=== PATIENT | male | born 2000 | race African-American/Black ===

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

== ENCOUNTER 2019-01-29 16:59 | Emergency (ER) | payer BC, MEDICAID ==
[~2019-01-29] VITALS: Ht 188 cm; Wt 81.6 kg
[2019-01-29 17:00] VITALS: BP_SYST 117
--- NOTE | 2019-01-29 17:00 | NUR ---
BROUGHT BACK TO BED #6 AND TRIAGED. REPORT GIVEN TO LEO
--- NOTE | 2019-01-29 17:05 | NUR ---
Pt brought by family member, A&Ox4, pt presents to ER with LAC on L eyelid , pt was playing basketball and pt had head to head contact with another player, bleeding controlled, pt is afebrile.
[2019-01-29] MEDS ORDERED: IBUPROFEN 600 MG TABLET PO ONE (17:15)
[2019-01-29] MEDS ORDERED: LIDOCAINE 2%, 20 ML MDV INJ ONE (17:15)
[2019-01-29] MEDS ORDERED: AMOXICILLIN/CLAVULANATE POTASSIUM 875 MG TABLET PO ONE (17:15)
[2019-01-29] MEDS ORDERED: DIPH-TET-PERTUS Vaccine 0.5 ML VIAL (ADACEL) I.M. ONE ×2 (17:15→18:01)
--- NOTE | 2019-01-29 17:20 | NUR ---
Ariana Banks COURIER at bedside examining patient
[2019-01-29] MEDS ORDERED: BACITRACIN 1 GM OINT TP ONE (17:30)
--- NOTE | 2019-01-29 18:00 | NUR ---
Patient given written and verbal discharge instructions and verbalizes understanding. ER MD discussed with patient the results and treatment provided. Patient in stable condition. ID arm band removed. Rx of MOTRIN, AUGMENTIN, BACITRACIN given. Patient educated on pain management and to follow up with PMD. Pain Scale 0/10. Opportunity for questions provided and answered. Medication side effect fact sheet provided.
[2019-01-29 18:02] VITALS: BP_SYST 117
[2019-02-04] MEDS ORDERED: KETOROLAC TROMETHAMINE 60 MG/2 ML VIAL IM ONE (18:30)
== END 2019-01-29 18:02 | disposition home or self-care (01) ==
LOC: SED 16:59
DX: S01.112A Laceration without foreign body of left eyelid and periocular area, initial encounter (principal); J45.909 Unspecified asthma, uncomplicated; R03.0 Elevated blood-pressure reading, without diagnosis of hypertension; W50.0XXA Accidental hit or strike by another person, initial encounter; Y93.67 Activity, basketball; Y92.89 Other specified places as the place of occurrence of the external cause; Y99.8 Other external cause status
CPT/HCPCS: 12011; 90471; 90715; 99283; J2001

== ENCOUNTER 2019-02-05 09:19 | Emergency (ER) | payer BC ==
[~2019-02-05] VITALS: Ht 188 cm; Wt 81.6 kg
[2019-02-05 09:30] VITALS: BP_SYST 115
--- NOTE | 2019-02-05 09:34 | NUR ---
Patient to ER bed 8 to gown for evaluation. Side rails up. Report given to Gerardo MONTEMAYOR.
--- NOTE | 2019-02-05 09:35 | NUR ---
Pt is here for suture removal to left 1cm supraorbit sutured wound without periwound erythema or discharge. Denies pain.
--- NOTE | 2019-02-05 09:36 | NUR ---
GIO Banks at bedside examining patient.
[2019-02-05 09:40] VITALS: BP_SYST 115
--- NOTE | 2019-02-05 09:40 | NUR ---
3 SUTURES REMOVAL SKIN INTACT WELL APPROXIMATELY,NO S/S INFECTION
--- NOTE | 2019-02-05 09:42 | NUR ---
Patient given written and verbal discharge instructions and verbalizes understanding. ER MD discussed with patient the results and treatment provided. Patient in stable condition. ID arm band removed. Rx of given. Patient educated on pain management and to follow up with PMD. Pain Scale 0. Opportunity for questions provided and answered. Medication side effect fact sheet provided.
== END 2019-02-05 09:42 | disposition home or self-care (01) ==
LOC: SED 09:19
DX: S01.112D Laceration without foreign body of left eyelid and periocular area, subsequent encounter (principal); J45.909 Unspecified asthma, uncomplicated; W50.0XXD Accidental hit or strike by another person, subsequent encounter
CPT/HCPCS: 99281

== ENCOUNTER 2020-10-18 20:03 | Emergency (ER) | payer BC ==
[~2020-10-18] VITALS: Ht 188 cm; Wt 79.4 kg
[2020-10-18 20:08] VITALS: BP_SYST 122
[2020-10-18 21:09] VITALS: BP_SYST 122
== END 2020-10-18 21:09 | disposition home or self-care (01) ==
LOC: SED 20:03
DX: S63.276A Dislocation of unspecified interphalangeal joint of right little finger, initial encounter (principal); W21.05XA Struck by basketball, initial encounter; Y93.67 Activity, basketball; Y92.89 Other specified places as the place of occurrence of the external cause; Y99.8 Other external cause status
CPT/HCPCS: 73140-TC; 99284

== ENCOUNTER 2024-02-06 19:17 | Emergency (ER) | payer BC ==
[~2024-02-06] VITALS: Ht 182.9 cm; Wt 81.6 kg
[2024-02-06 19:21] VITALS: BP_SYST 143; PULSE 83; RESP 20; TEMP 97.8; O2SAT 99
[2024-02-06] MEDS: HYDROcodone/ACETAMIN 10-325 MG TAB PO ONE (19:58)
[2024-02-06] MEDS: IBUPROFEN 800 MG TABLET PO ONE (19:58)
[2024-02-06] MEDS ORDERED: TRAM50TA2 PO (21:36)
[2024-02-06] MEDS ORDERED: IBUP-1971 PO (21:36)
[2024-02-06 21:52] VITALS: BP_SYST 128; PULSE 77; RESP 15; O2SAT 99
== END 2024-02-06 21:52 | disposition home or self-care (01) ==
LOC: SED 19:17
DX: S92.321A Displaced fracture of second metatarsal bone, right foot, initial encounter for closed fracture (principal); S92.341A Displaced fracture of fourth metatarsal bone, right foot, initial encounter for closed fracture; S92.334A Nondisplaced fracture of third metatarsal bone, right foot, initial encounter for closed fracture; J45.909 Unspecified asthma, uncomplicated; Z79.899 Other long term (current) drug therapy; W18.39XA Other fall on same level, initial encounter; Y93.53 Activity, golf; Y92.89 Other specified places as the place of occurrence of the external cause; Y99.8 Other external cause status
CPT/HCPCS: 99283

== ENCOUNTER 2024-02-12 14:08 | Emergency (ER) | payer BC ==
[~2024-02-12] VITALS: Ht 182.9 cm; Wt 83.9 kg
[~2024-02-12 14:08] MED LIST changes: +IBUP-1971 PO; +TRAM50TA2 PO
[2024-02-12 14:43] VITALS: BP_SYST 144; PULSE 63; RESP 16; TEMP 98.3; O2SAT 98
[2024-02-12 15:21] VITALS: BP_SYST 132; PULSE 72; RESP 18; TEMP 98.3; O2SAT 100
== END 2024-02-12 15:21 | disposition home or self-care (01) ==
LOC: SED 14:08
DX: S92.324D Nondisplaced fracture of second metatarsal bone, right foot, subsequent encounter for fracture with routine healing (principal); S92.344D Nondisplaced fracture of fourth metatarsal bone, right foot, subsequent encounter for fracture with routine healing; S92.334D Nondisplaced fracture of third metatarsal bone, right foot, subsequent encounter for fracture with routine healing; J45.909 Unspecified asthma, uncomplicated; Z79.899 Other long term (current) drug therapy; W18.39XD Other fall on same level, subsequent encounter
CPT/HCPCS: 99281